=== PATIENT | female | born 1970 | race Caucasian/White ===

== ENCOUNTER 2016-05-12 19:49 | Emergency (ER) | payer MEDICARE, OTHER ==
--- NOTE | ~2016-05-12 | CR58 ---
[facility] A Service of [facility] RADIOLOGY TEXT RESULTS PATIENT: RAHUL HARO LOCATION: SED : 74 UNIT #: [id number] AGE: [address]: Franci Murray APRN SEX: F ORDER DR: [id number] [address] [id number] E MR#: [id number] Acc #: [id number] NAME: RAHUL HARO : 1970 SEX: F STUDY DATE/TIME: 05/12/2016 20:07 UNIT: SED ROOM: STUDY DESCRIPTION: CR Cervical Spine 2 or 3 Views Attending Physician: Franci Murray A.P.R.N. Ordering Physician: Franci Murray A.P.R.N. Primary Care Physician: Clementine Canseco M.D. MEDICAL IMAGING REPORT This report is preliminary unless electronic signature is present. EXAM Three-view cervical spine DATE 05/12/2016 at 20:07 HISTORY 46-year-old female with chronic neck pain. Patient does not describe recent injury. COMPARISON None FINDINGS There is mild diminished disc height at C5-6 and C6-7. No fracture. No subluxation. No retained radiopaque foreign body. Craniocervical junction appears intact. No abnormal prevertebral soft tissue swelling. No significant facet arthropathy. Imaged lung apices appear clear. IMPRESSION Mild diminished disc height at C5-6 and C6-7. No acute cervical spine fracture or subluxation. Dictated by... Ariadne Wayne M.D. THIS IS AN ELECTRONICALLY VERIFIED REPORT Ariadne Wayne M.D. at 05/14/2016 2:09 PM H/to TD: 05/13/2016 11:08 JOB #: [id number] [facility] A Service [facility] RADIOLOGY TEXT RESULTS PATIENT: RAHUL HARO LOCATION: SED : 74 UNIT #: [id number] AGE: [address]: Franci Murray APRN SEX: F ORDER DR: MEDICAL IMAGING REPORT
[~2016-05-12 19:49] MED LIST: ADDERALL; ADDERALL PO; ALBUTEROL17 GM INH; ALPRAZOLAM PO; AMOXICILLIN PO; BACTRIM DS TABL1 TA2 PO; BACTROBAN22 GM TOP; BENTYL10 MG PO; CARAFATE1 G; COLACE PO; DELSYM30 MG/5 ML PO; DICYCLOMINE HCL20 MG; FERROUS GLUCON325 M1; IBUPROFEN PO; MIRALAX255 GM PO; MOBIC PO; MORGIDOX100 MG PO; NORCO 10-325 TA1 TAB; PAXIL; PHENERGAN PO; PHENERGAN W/CO120 ML PO; PREDNISONE10 MG/DOSE PO; PRENATAL1 TA1; PRILOSEC40 MG; PROTONIX; TYLENOL #3 PO; ULTRAM PO; VIBRAMYCIN100 M1 PO; VICODIN 5/500 T1 TAB PO; VITAMIN D1000 UNIT PO; ZANTAC
== END 2016-05-12 20:54 | disposition home or self-care (01) ==
LOC: SED 19:49
DX: S13.4XXA Sprain of ligaments of cervical spine, initial encounter (principal); M43.6 Torticollis; F17.200 Nicotine dependence, unspecified, uncomplicated; Z88.8 Allergy status to other drugs, medicaments and biological substances; Z79.899 Other long term (current) drug therapy
CPT/HCPCS: 72040; 99283